=== PATIENT | male | born 1955 | race Caucasian/White ===

== ENCOUNTER → 2021-11-10 | Outpatient (CLI) | payer BC, MEDICARE | LOC: KOH-I 09:19 | DX: S52.125A Nondisplaced fracture of head of left radius, initial encounter for closed fracture (principal) | CPT/HCPCS: 73200 ==

== ENCOUNTER → 2021-11-21 | Outpatient (CLI) | payer BC, MEDICARE ==
[~2021-11-21] MED LIST: CRESTOR10 MG PO; FLOMAX 0.4 MG0.4 MG PO; NEURONTIN600 MG PO; NORVASC10 MG PO; PEPCID AC20 MG PO; REMERON15 MG PO
[2021-11-21 08:50] LABS: HEMOGLOBIN 15.2 gm/dl (14.0-17.5); RED BLOOD COUNT 4.88 M/UL (4.20-5.50); WHITE BLOOD COUNT 6.4 K/UL (4.5-11.0)
== END ==
LOC: OPSV2 07:16
PROVIDERS: Orthopaedic Surgery
DX: Z01.818 Encounter for other preprocedural examination (principal); S52.122A Displaced fracture of head of left radius, initial encounter for closed fracture
CPT/HCPCS: 36415; 71046; 80048; 85027; 93005

== ENCOUNTER → 2021-11-30 | Day surgery (SDC) | payer BC, MEDICARE ==
[~2021-11-30] MED LIST changes: +HYDROCODON-ACE1 EAC6 PO
== END | disposition home or self-care (01) ==
LOC: OR 04:49
PROVIDERS: Orthopaedic Surgery
DX: S52.122A Displaced fracture of head of left radius, initial encounter for closed fracture (principal); I10 Essential (primary) hypertension; E78.5 Hyperlipidemia, unspecified; Z79.899 Other long term (current) drug therapy; F17.210 Nicotine dependence, cigarettes, uncomplicated; W28.XXXA Contact with powered lawn mower, initial encounter
CPT/HCPCS: 73070; 76000; 80048; C1713; C1776; J0690; J1100; J2001; J2250; J2405; J2704; J2710; J2795; J3370